=== PATIENT | female | born 1990 | race Two or more races ===

== ENCOUNTER 2020-04-26 10:55 | Emergency (ER) | payer MEDICAID ==
[~2020-04-26] VITALS: Ht 162.6 cm; Wt 59.0 kg
--- NOTE | 2020-04-26 11:00 | NUR ---
ED Nurse Note:pt. was BIBA from the street with biummare behaivior, probably substance user, pt. is A/Ox2 on arrivar with garbled speech, compliant with staff, blood and urine was sent to labs, pt. received meds, personal belongings placed in psych locker, VSS, no SI/HI was voiced by her
[2020-04-26 11:04] VITALS: BP 106/70
[2020-04-26] MEDS ORDERED: Haloperidol 5mg/ml Inj IM ONE (11:15)
[2020-04-26 11:38] LABS: APPEARANCE,URINE CLOUDY; BILIRUBIN, URINE NEGATIVE (NEGATIVE); GLUCOSE, URINE (UA) NEGATIVE (NEGATIVE); KETONES,URINE 4+ (NEGATIVE); LEUKOCYTE ESTERASE ,URINE 3+ (NEGATIVE); NITRITE,URINE POSITIVE (NEGATIVE); PH,URINE 7 (4.5-8.0); PROTEIN,URINE 3+ (NEGATIVE); UROBILINOGEN,URINE 1 MG/DL (0.0-1.0)
[2020-04-26 11:41] LABS: BASOPHILS % (AUTO) 3.8 % (0.0-2.0); EOSINOPHILS % (AUTO) 1.6 % (0.0-3.0); HEMATOCRIT 31.5 % (37.0-47.0); HEMOGLOBIN 10.6 G/DL (12.0-16.0); LYMPHOCYTES % (AUTO) 19.4 % (20.0-45.0); MEAN CORPUSCULAR VOLUME 90 FL (80-99); MONOCYTES % (AUTO) 12.7 % (1.0-10.0); NEUTROPHILS % (AUTO) 62.6 % (45.0-75.0); PLATELET COUNT 280 K/UL (150-450); RED BLOOD COUNT 3.49 M/UL (4.20-5.40); RED CELL DISTRIBUTION WIDTH 12.9 % (11.6-14.8); WHITE BLOOD COUNT 10.9 K/UL (4.8-10.8)
[2020-04-26 11:41] LABS: COLOR,URINE YELLOW
[2020-04-26 11:46] LABS: ALANINE AMINOTRANSFERASE 24 U/L (12-78); ALBUMIN 3.8 G/DL (3.4-5.0); ALKALINE PHOSPHATASE 56 U/L (46-116); ANION GAP 9 mmol/L (5-15); ASPARTATE AMINO TRANSFERASE 42 U/L (15-37); BILIRUBIN,TOTAL 0.5 MG/DL (0.2-1.0); BLOOD UREA NITROGEN 22 mg/dL (7-18); CALCIUM 8.5 MG/DL (8.5-10.1); CARBON DIOXIDE 25 MMOL/L (21-32); CHLORIDE 106 MMOL/L (98-107); CREATININE 0.8 MG/DL (0.55-1.30); POTASSIUM 3.8 MMOL/L (3.5-5.1); SODIUM 139 MMOL/L (136-145)
[2020-04-26] MEDS ORDERED: Cephalexin 500mg cap ORAL ONE (12:15)
--- NOTE | 2020-04-26 13:33 | Emergency Room Report ---
History of Present Illness General Chief Complaint: Altered Mental Status Source: Patient, EMS (Dwayne Guevara MD) Present Illness HPI 29-year-old female presents the ED behavioral complaints. Brought in by EMS from Street. Running through the streets. Not answering questions. Denies SI or HI. Unclear whether patient use drugs. Unclear whether patient has a psych history. No other aggravating relieving factors. No other associated symptoms. (Dwayne Guevara MD) Allergies: Coded Allergies: No Known Allergies (Unverified , 04/26/20) COVID-19 Screening Contact w/high risk pt: No Experienced COVID-19 symptoms?: No COVID-19 Testing performed UNDERWEAR HEMMER: No (Dwayne Guevara MD) Patient History Past Medical History: none Past Surgical History: none Pertinent Family History: none Social History: Denies: smoking, alcohol use, drug use Now: No Immunizations: UTD Reviewed Nursing Documentation: PMH: Agreed; PSxH: Agreed (Dwayne Guevara MD) Nursing Documentation-PMH Past Medical History: No History, Except For (Dwayne Guevara MD) Review of Systems All Other Systems: negative except mentioned in HPI (Dwayne Guevara MD) Physical Exam Vital Signs Date Time Temp Pulse Resp B/P (MAP) Pulse Ox O2 Delivery O2 Flow Rate FiO2 04/26/20 10:55 98.1 90 18 106/70 (82) 98 Room Air Sp02 EP Interpretation: reviewed, normal General Appearance: no apparent distress, alert, GCS 15, non-toxic Head: normocephalic, atraumatic Eyes: bilateral eye normal inspection, bilateral eye PERRL ENT: hearing grossly normal, normal pharynx, no angioedema, normal voice Neck: full range of motion, supple/symm/no masses Respiratory: chest non-tender, lungs clear, normal breath sounds, speaking full sentences Cardiovascular #1: regular rate, rhythm, no edema Cardiovascular #2: 2+ carotid (R), 2+ carotid (L), 2+ radial (R), 2+ radial (L), 2+ dorsalis pedis (R), 2+ dorsalis pedis (L) Gastrointestinal: normal bowel sounds, non tender, soft, non-distended, no guarding, no rebound Rectal: deferred Genitourinary: normal inspection, no CVA tenderness Musculoskeletal: back normal, normal range of motion, gait/station normal, non- tender Neurologic: alert, motor strength/tone normal, oriented x3, sensory intact, responsive, speech normal Psychiatric: judgement/insight normal, memory normal, mood/affect normal, no suicidal/homicidal ideation Reflexes: 3+ bicep (R), 3+ bicep (L), 3+ tricep (R), 3+ tricep (L), 3+ knee (R), 3+ knee (L) Lymphatic: no adenopathy (Dwayne Guevara MD) Medical Decision Making Diagnostic Impression: Primary Impression: Substance abuse Additional Impression: UTI (urinary tract infection) Qualified Codes: N30.00 - Acute cystitis without hematuria Laboratory Tests Test 04/26/20 11:15 04/26/20 11:20 04/26/20 11:30 White Blood Count 10.9 K/UL (4.8-10.8) H Red Blood Count 3.49 M/UL (4.20-5.40) L Hemoglobin 10.6 G/DL (12.0-16.0) L Hematocrit 31.5 % (37.0-47.0) L Mean Corpuscular Volume 90 FL (80-99) Mean Corpuscular Hemoglobin 30.2 PG (27.0-31.0) Mean Corpuscular Hemoglobin Concent 33.5 G/DL (32.0-36.0) Red Cell Distribution Width 12.9 % (11.6-14.8) Platelet Count 280 K/UL (150-450) Mean Platelet Volume 8.2 FL (6.5-10.1) Neutrophils (%) (Auto) 62.6 % (45.0-75.0) Lymphocytes (%) (Auto) 19.4 % (20.0-45.0) L Monocytes (%) (Auto) 12.7 % (1.0-10.0) H Eosinophils (%) (Auto) 1.6 % (0.0-3.0) Basophils (%) (Auto) 3.8 % (0.0-2.0) H Sodium Level 139 MMOL/L (136-145) Potassium Level 3.8 MMOL/L (3.5-5.1) Chloride Level 106 MMOL/L (98-107) Carbon Dioxide Level 25 MMOL/L (21-32) Anion Gap 9 mmol/L (5-15) Blood Urea Nitrogen 22 mg/dL (7-18) H Creatinine 0.8 MG/DL (0.55-1.30) Estimat Glomerular Filtration Rate > 60 mL/min (>60) Glucose Level 80 MG/DL (74-106) Calcium Level 8.5 MG/DL (8.5-10.1) Total Bilirubin 0.5 MG/DL (0.2-1.0) Aspartate Amino Transf (AST/SGOT) 42 U/L (15-37) H Alanine Aminotransferase (ALT/SGPT) 24 U/L (12-78) Alkaline Phosphatase 56 U/L (46-116) Total Protein 7.5 G/DL (6.4-8.2) Albumin 3.8 G/DL (3.4-5.0) Globulin 3.7 g/dL Albumin/Globulin Ratio 1.0 (1.0-2.7) Salicylates Level 1.9 ug/mL (2.8-20) L Acetaminophen Level < 2 MCG/ML (10-30) L Serum Alcohol < 3 mg/dL Urine Color Yellow Urine Appearance Cloudy Urine pH 7 (4.5-8.0) Urine Specific Rowdy 1.015 (1.005-1.035) Urine Protein 3+ (NEGATIVE) H Urine Glucose (UA) Negative (NEGATIVE) Urine Ketones 4+ (NEGATIVE) H Urine Blood 4+ (NEGATIVE) H Urine Nitrite Positive (NEGATIVE) H Urine Bilirubin Negative (NEGATIVE) Urine Urobilinogen 1 MG/DL (0.0-1.0) H Urine Leukocyte Esterase 3+ (NEGATIVE) H Urine RBC 5-10 /HPF (0 - 2) H Urine WBC Tntc /HPF (0 - 2) H Urine Squamous Epithelial Cells Few /LPF (NONE/OCC) Urine Bacteria Many /HPF (NONE) H Urine HCG, Qualitative Negative (NEGATIVE) Urine Opiates Screen Negative (NEGATIVE) Urine Barbiturates Screen Negative (NEGATIVE) Phencyclidine (PCP) Screen Negative (NEGATIVE) Urine Amphetamines Screen Positive (NEGATIVE) H Urine Benzodiazepines Screen Negative (NEGATIVE) Urine Cocaine Screen Negative (NEGATIVE) Urine Marijuana (THC) Screen Positive (NEGATIVE) H (Dwayne Guevara MD) ER Course Please see above note. Patient sleeping after Haldol. Plan to reevaluate when patient is awake. [id number] 1920patient more awake. She denies suicidal or homicidal ideation. She states that she does not take psychiatric medication. She feels that this mainly is from the drugs that she had been using. She states that she is living in a safe place. She denies any pain at this time. She denies medical problems. I told her she has a urinary tract infection will need to be treated. Patient is still sleepy. Patient continued to be observed until more awake. However no identified psychiatric or medical emergency at this time. Patient signed out to Dr. Larry. (Denzel Matthew MD) ER Course Patient was endorsed to me by prior physician. Appears to have some urinary tract infection. Laboratory testing was otherwise unremarkable. Patient was given food in the emergency department. I, Dr. Larry, the Treating physician, has assessed whether the patient is alert and oriented to person, place and time and has determined that the patient is clinically stable for discharge. Patient was given prescriptions for medications for treatment of urinary infection. (Rome Larry MD) Last Vital Signs Date Time Temp Pulse Resp B/P (MAP) Pulse Ox O2 Delivery O2 Flow Rate FiO2 04/26/20 11:04 98.1 18 106/70 98 Room Air 04/26/20 11:04 90 (Dwayne Guevara MD) Last Vital Signs Date Time Temp Pulse Resp B/P (MAP) Pulse Ox O2 Delivery O2 Flow Rate FiO2 04/26/20 14:28 98.1 79 16 105/69 98 Room Air Status: improved (Denzel Matthew MD) Status: improved (Rome Larry MD) Disposition: HOME, SELF-CARE Condition: Improved Scripts Nitrofurantoin Monohyd/M-Cryst* (MACROBID 100 MG*) 100 Mg Capsule 100 MG ORAL EVERY 12 HOURS, #14 CAP Prov: Denzel Matthew MD 04/26/20 Referrals: NOT CHOSEN IPA/,REFERRING (PCP) Dwayne Guevara MD Apr 26, 2020 13:33 Denzel Matthew MD Apr 26, 2020 14:43 [place] Larry MD Apr 27, 2020 05:25
[2020-04-26 14:28] VITALS: BP 105/69
--- NOTE | 2020-04-26 15:40 | NUR ---
ED Nurse Note:pt. is still sleeping and doesn't answer questions
[2020-04-26] MEDS ORDERED: NITROFURANTOIN100 M2 ORAL (19:25)
--- NOTE | 2020-04-26 19:30 | NUR ---
ED Nurse Note: Recieved report to resume care, pt in bed resting, arouses to tactile stimuli, pt remains very intoxicated, not speaking appropriately and can not stand, v/s stable, denies pain, no sob or labored breatging, will continue to monitor and sober when appropriate and safe for pt.
[2020-04-26 20:00] VITALS: BP 111/64
--- NOTE | 2020-04-26 23:00 | NUR ---
ED Nurse Note: Pt awakened in room and defecated in trash can and on floor then slept in it, pt picked up, assisted to barhroom with un-steady gait and severe intoxication, oriented to name and place, denies cp, no sob or labored breathing noted, pt cleaned, room cleaned and assisted back to bed, ill d/c when appropriate.
[2020-04-27] VITALS: BP 102/58
--- NOTE | 2020-04-27 02:40 | NUR ---
ED Nurse Note: Pt awakened to use bathroom, asked ans addisted, pt is more awake and alert but appears to require more time for d/c, pt denies being homeless, no cp, no sob, nad noted, will continue to monitor.
[2020-04-27 05:35] VITALS: BP 119/69
--- NOTE | 2020-04-27 06:05 | NUR ---
ER DISCHARGE NOTE: Patient is cleared to be discharged per ERMD, pt is aox4, on room air, with stable vital signs. pt was given dc and prescription instructions, pt was able to verbalize understanding, pt id band removed without complications. pt is able to ambulate with steady gait. pt took all belongings.
== END 2020-04-27 06:05 | disposition home or self-care (01) ==
LOC: EDBD 10:55 → EMR 11:39
DX: F19.10 Other psychoactive substance abuse, uncomplicated (principal); N30.00 Acute cystitis without hematuria
CPT/HCPCS: 36415; 80053; 80307; 81003; 81025; 85025; 87086; 87181; 96372; G0480; G0481; J1630; Z7502; 99284